=== PATIENT | male | born 1995 | race Caucasian/White ===

== ENCOUNTER 2017-03-26 20:48 | Emergency (ER) | payer OTHER ==
[~2017-03-26] VITALS: Ht 188 cm; Wt 93.2 kg
[2017-03-26 20:51] VITALS: BP 147/87; PULSE 99; RESP 16; O2SAT 99
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
[2017-03-26] MEDS ORDERED: oxyCODONE-Acetamin 5-325 mg Tablet PO ONE (22:10)
[2017-03-26] MEDS ORDERED: _oxyCODONE/APAP 5-325 mg Tablet PO PRN (23:00)
[2017-03-26] MEDS ORDERED: _Ondansetron ODT 4 mg Tablet PO PRN (23:15)
[2017-03-26] MEDS ORDERED: Ondansetron 8 mg ODT Tablet PO ONE (23:15)
[2017-03-27 00:12] VITALS: BP 134/79; PULSE 76; RESP 16; O2SAT 97
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
== END 2017-03-26 23:47 | disposition home or self-care (01) ==
LOC: SED 20:48
DX: S63.592A Other specified sprain of left wrist, initial encounter (principal); S50.12XA Contusion of left forearm, initial encounter; S09.8XXA Other specified injuries of head, initial encounter; V43.52XA Car driver injured in collision with other type car in traffic accident, initial encounter; Y93.89 Activity, other specified; Y92.410 Unspecified street and highway as the place of occurrence of the external cause; Y99.8 Other external cause status; R42 Dizziness and giddiness; R41.0 Disorientation, unspecified
CPT/HCPCS: 29125; 70450; 73080; 73090; 96372; 99285; J1885